=== PATIENT | male | born 2000 | race Caucasian/White ===

== ENCOUNTER 2018-01-06 20:00 | Emergency (ER) | payer OTHER ==
[2018-01-06 20:04] VITALS: BP 137/65
--- NOTE | 2018-01-06 20:09 | EDPHY ---
H & P Smoking Status: Never smoked Time Seen by Provider: 01/06/18 20:05 HPI/ROS: CHIEF COMPLAINT: Right lateral ankle pain HISTORY OF PRESENT ILLNESS: 17-year-old male prior remote history of right ankle fracture, nonsurgical, arrives via private vehicle with his own pre- hospital crutches complaining of right lateral ankle pain after he jumped up room basketball, landed on somebody's foot rolled his foot. He is complaining of lateral ankle pain. No proximal tibia or fibula pain. No fibular head or knee pain. No foot pain. No calcaneus pain. No other injury. PHYSICAL EXAM (Prior to examination, patient consented to physical exam, hands were washed and my usual and customary physical exam procedures followed) 1) GENERAL: Well-developed, well-nourished, alert and oriented. Appears to be in no acute distress. 2) HEAD: Normocephalic 3) HEENT: Pupils equal, round, reactive to light bilaterally. 4) LUNGS: Breathing comfortably. 5) MUSCULOSKELETAL: Soft tissue swelling and tender to palpation right lateral malleolus. Fibular head nontender. proximal tibia and fibula nontender .5th MT nontender negative Burk test, compartments soft. Calcaneus nontender. 6) SKIN: Intact 7) VASCULAR: DP,PT pulses and cap refill present and brisk DIFFERENTIAL DIAGNOSIS: in no particular order including but not limited to fracture, sprain, compartment syndrome Procedure: Crutches Patient has his own pre-hospital crutches. He was observed crutch walking with success Procedure: Splint A Abdirahman boot splint was applied by ER ballistic technician. After application of the splint I returned and re-examined the patient. The splint was adequately immobilizing the joint and distal to the splint the patient's circulation and sensation were intact. Patient shows no signs of compartment syndrome. Was given orthopedic precautions. (Lora Porter) Constitutional: Initial Vital Signs Temperature (C) 37.1 C 01/06/18 20:02 Heart Rate 66 01/06/18 20:02 Respiratory Rate 18 01/06/18 20:02 Blood Pressure 137/65 H 01/06/18 20:02 O2 Sat (%) 95 01/06/18 20:02 O2 Delivery Mode Room Air Allergies/Adverse Reactions: No Known Allergies Allergy (Unverified 01/06/18 20:04) Home Medications: Medication Instructions Recorded NK [No Known Home Meds] 01/06/18 MDM/Departure - MDM Imaging Results: Imaging Impressions Ankle X-Ray 01/06/18 20:10 Impression: Ossification at the inferior tip of the lateral malleolus, which could be sequela from prior injury or possible avulsion fracture. Soft tissue swelling and tibiotalar joint effusion. Images reviewed myself (Lora Porter) Medications Given: Discontinued Medications Hydrocodone Bitart/Acetaminophen ([place] 5/325mg Prepack#6) 1 btl TAKEHOME EDNOW ONE Stop: 01/06/18 20:50 Last Admin: 01/06/18 20:53 Dose: 1 btl ED Course/Re-evaluation: Care of patient under supervision of secondary supervising physician Dr Rita Alex. Patient was re-evaluated with serial examinations. Neurovascular intact with no evidence of compartment syndrome. He has a prior history of fracture to same location. He has been informed acute fracture is not ruled out. There is no indication for emergent orthopedic consultation however I stressed and recommended outpatient follow-up with orthopedics and gave him this referral information. Care of patient under supervision of secondary supervising physician Dr Alex . (Lora Porter) Differential Diagnosis: The patient was evaluated and managed by the Physician Sales Associate Key Holder. My co- signature indicates that I have reviewed this chart and I agree with the findings and plan of care as documented. I am the secondary supervising physician. (Rita Alex) - Depart Disposition: Home, Routine, Self-Care Clinical Impression: Right ankle sprain Qualifiers: Encounter type: initial encounter Involved ligament of ankle: unspecified ligament Qualified Code(s): S93.401A - Sprain of unspecified ligament of right ankle, initial encounter Condition: Good Instructions: Hydrocodone/Acetaminophen (By mouth), Ankle Sprain (ED) Additional Instructions: Return to the ER immediately if you experience discoloration, have worsening pain, numbness, tingling, or any other symptoms that concern you. If you received x-rays in the emergency department today, be advised, that ligamentous , tendon, muscular, and other non-bony injury cannot be fully ruled out. Try to keep your affected extremity elevated above the level of your chest, and keep cold packs on the affected area, for the next 48 hours. Referrals: Ronny Weems MD [Medical Doctor] - 2-3 days, call for appt. (Dr. Weems is orthopedic surgeon)
[2018-01-06] MEDS ORDERED: HYDROCOD/APAP 5/325 PREPACK#6 BTL TAKEHOME ONE (20:49)
== END 2018-01-06 20:55 | disposition home or self-care (01) ==
DX: S93.401A Sprain of unspecified ligament of right ankle, initial encounter (principal); X58.XXXA Exposure to other specified factors, initial encounter; Y99.8 Other external cause status; Y93.39 Activity, other involving climbing, rappelling and jumping off
CPT/HCPCS: L4386